=== PATIENT | female | born 1990 | race African-American/Black ===

== ENCOUNTER → 2016-08-28 08:21 | Outpatient (CLI) | payer MEDICAID | END | disposition home or self-care (01) | LOC: D.CT 08:21 | DX: R10.2 Pelvic and perineal pain (principal) ==

== ENCOUNTER 2017-09-26 08:38 | Day surgery (SDC) | payer BC ==
--- NOTE | ~2017-09-26 | OP ---
PATIENT NAME: ROBYN AYERS MEDICAL RECORD: [id number] :88 LOCATION:D.OPS ADMISSION DATE: SURGEON: PRISCILA MCCALLUM MD DATE OF OPERATION: 09/26/2017 SURGEON: Priscila Mccallum MD PREOPERATIVE DIAGNOSIS: Right lower quadrant abdominal wall mass. POSTOPERATIVE DIAGNOSIS: Right lower quadrant abdominal wall mass. PROCEDURE PERFORMED: Excisional biopsy of abdominal wall mass, 5 x 3 x 4 cm. ANESTHESIA: General. COMPLICATIONS: None. SPECIMENS: Abdominal wall mass, 5 x 3 x 4 cm. The case was clean. ESTIMATED BLOOD LOSS: 20 cc. COMPLICATIONS: None. OPERATIVE COURSE: After consent was obtained, the patient was taken to the operating room and placed in the supine position on the operating table. Next, general anesthesia was given via endotracheal intubation after a timeout was performed to confirm the correct patient and procedure. A 20 cc of local anesthetic were injected in the right lower quadrant at the previous incision. The right lateral edge of the incision was opened with a 15 blade scalpel. Dissection continued with electrocautery. The mass was palpable. Dissection continued to the superior surface of the nodule. The nodule was then circumferentially dissected using electrocautery and sharp scissor dissection. The mass was taken in several pieces and sent for permanent pathology. The wound was then copiously irrigated and suctioned. The wound was closed in multiple layers, deep subq was closed with 3-0 Vicryl sutures, superficial fascia was closed with 3-0 Vicryl suture. The skin was closed with a 4-0 Monocryl in a subcuticular fashion. Skin incision was reinforced with Mastisol and Steri-Strips. At the end of the case, all needle and instrument counts were correct. No complications occurred. The patient was extubated and transferred to the PACU in stable condition. TRANSINT:[id number] Voice Confirmation ID: [id number] DOCUMENT ID: [id number] PRISCILA MCCALLUM MD at 1301 CC: [id number] DICTATION DATE: 09/26/17 1138 [employer] MANAGER: 09/26/17 1156 [facility] [address] [place] [address]
[2017-09-26 09:35] VITALS: BP 124/80; BMI 32.8
[2017-09-26 10:05] LABS: HCG URINE NEGATIVE (NEGATIVE)
[2017-09-26] MEDS ORDERED: HYDROCODON-ACE1 EAC7 PO (11:40)
== END 2017-09-26 13:45 | disposition home or self-care (01) ==
LOC: D.OPS 08:38 → D.PAN 11:15 → D.OPS 13:45
PROVIDERS: Surgery
DX: R19.09 Other intra-abdominal and pelvic swelling, mass and lump (principal); Z01.812 Encounter for preprocedural laboratory examination